=== PATIENT | male | born 1990 | race African-American/Black ===

== ENCOUNTER 2017-12-09 16:48 | Emergency (ER) | payer OTHER ==
[2017-12-09] MEDS ORDERED: OXYCODONE-ACETAMINOPHEN 5-325 MG TABLET PO ONE (17:20)
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
[2017-12-09 18:16] LABS: ABSOLUTE EOSINOPHILS # (AUTO) 0.1 10^3/uL (0.0-0.6); ABSOLUTE MONOCYTES (AUTO) 0.4 10^3/uL (0.1-1.4); ABSOLUTE NEUT (AUTO) 1.3 10^3/uL (1.7-8.2); BASOPHILS % (AUTO) 0.6 % (0-2); EOSINOPHILS % (AUTO) 1.9 % (0-6); HEMATOCRIT 47.8 % (37.9-51.0); HEMOGLOBIN 16.2 g/dL (13.5-17.0); LYMPHOCYTES % (AUTO) 34.7 % (13-45); MEAN CORPUSCULAR VOLUME 91 fl (80-97); PLATELET COUNT 172 10^3/uL (150-450); RED BLOOD COUNT 5.23 10^6/uL (4.35-5.55); SEGMENTED NEUTROPHILS % (AUTO) 47.8 % (42-78); TOTAL CELLS COUNTED % (AUTO) 100 %; WHITE BLOOD COUNT 2.7 10^3/uL (4.0-10.5)
[2017-12-09 18:33] LABS: ALANINE AMINOTRANSFERASE 33 U/L (21-72); ALBUMIN 4.8 g/dL (3.5-5.0); ALKALINE PHOSPHATASE 81 U/L (38-126); ANION GAP 9 (5-19); ASPARTATE AMINO TRANSFERASE 32 U/L (17-59); BILIRUBIN,DIRECT 0.3 mg/dL (0.0-0.4); BILIRUBIN,TOTAL 1.3 mg/dL (0.2-1.3); BLOOD UREA NITROGEN 11 mg/dL (7-20); CALCIUM 9.7 mg/dL (8.4-10.2); CARBON DIOXIDE 26 mmol/L (22-30); CHLORIDE 107 mmol/L (98-107); GLUCOSE 77 mg/dL (75-110); POTASSIUM 4.3 mmol/L (3.6-5.0); SODIUM 142.2 mmol/L (137-145); TOTAL PROTEIN 7.6 g/dL (6.3-8.2)
[2017-12-09 18:37] LABS: APPEARANCE,URINE CLEAR; BILIRUBIN,URINE NEGATIVE (NEGATIVE); COLOR,URINE YELLOW; GLUCOSE, URINE NEGATIVE (NEGATIVE); KETONES,URINE TRACE mg/dL (NEGATIVE); LEUKOCYTE ESTERASE,URINE NEGATIVE (NEGATIVE); NITRITE,URINE NEGATIVE (NEGATIVE); PROTEIN,URINE NEGATIVE (NEGATIVE); URINE SPECIFIC GRAVITY 1.025
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
[2017-12-09] MEDS ORDERED: DIPH/PERTUSS(ACELL)/TETANUS VAC/PF 0.5 ML SYR (>=10YO) IM ONE (19:19)
[2017-12-09 20:19] VITALS: BP 101/43
== END 2017-12-09 20:00 | disposition home or self-care (01) ==
LOC: ER 16:48
DX: S10.91XA Abrasion of unspecified part of neck, initial encounter (principal); S30.811A Abrasion of abdominal wall, initial encounter; D72.819 Decreased white blood cell count, unspecified; R10.12 Left upper quadrant pain; R07.81 Pleurodynia; V49.9XXA Car occupant (driver) (passenger) injured in unspecified traffic accident, initial encounter; F17.200 Nicotine dependence, unspecified, uncomplicated
CPT/HCPCS: 36415; 71260; 74177; 80053; 81001; 85025; 90715; 99284

== ENCOUNTER 2018-04-29 21:52 | Emergency (ER) | payer OTHER ==
--- NOTE | 2018-04-29 23:03 | ER Document Report ---
ED Medical Screen (RME) - General Chief Complaint: Cold Symptoms Stated Complaint: COLD SYMPTOMS Time Seen by Provider: 04/29/18 22:55 Mode of Arrival: Ambulatory Information source: Patient Notes: 27-year-old male history of lymphoma has been in remission for the past 2 years presents with 2 week duration of cough subjective fevers night sweats Patient notes that he is lost 4 pounds in the past week spoke with his oncologist who does not believe it is lymphoma related I have greeted and performed a rapid initial assessment of this patient. A comprehensive ED assessment and evaluation of the patient, analysis of test results and completion of the medical decision making process will be conducted by additional ED providers. PHYSICAL EXAMINATION: GENERAL: Well-appearing, well-nourished and in no acute distress. HEAD: Atraumatic, normocephalic. EYES: Pupils equal round extraocular movements intact, conjunctiva are normal. ENT: Nares patent NECK: Normal range of motion LUNGS: No respiratory distress Musculoskeletal: Normal range of motion NEUROLOGICAL: Normal speech, normal gait. PSYCH: Normal mood, normal affect. SKIN: Warm, Dry, normal turgor, no rashes or lesions noted. TRAVEL OUTSIDE OF THE [place] IN LAST 30 DAYS: No - Related Data Allergies/Adverse Reactions: No Known Allergies Allergy (Unverified 01/29/12 20:32) Past Medical History - Social History Chew tobacco use (# tins/day): No Frequency of alcohol use: None Drug Abuse: None Renal/ Medical History: Denies: Hx Peritoneal Dialysis Malignancy Medical History: Reports Hx Lymphoma Past Surgical History: Reports: Hx Vascular Surgery - Immunizations Hx Diphtheria, Pertussis, Tetanus Vaccination: No Physical Exam - Vital signs Vitals: Temp Pulse Resp BP Pulse Ox 98.3 F 81 18 102/62 96 04/29/18 22:05 04/29/18 22:05 04/29/18 22:05 04/29/18 22:05 04/29/18 22:05 Course - Vital Signs Vital signs: Temp Pulse Resp BP Pulse Ox 98.3 F 81 18 102/62 96 04/29/18 22:05 04/29/18 22:05 04/29/18 22:05 04/29/18 22:05 04/29/18 22:05
[2018-04-29 23:36] LABS: ABSOLUTE LYMPHOCYTES (AUTO) 1.2 10^3/uL (0.5-4.7); ABSOLUTE MONOCYTES (AUTO) 0.6 10^3/uL (0.1-1.4); ABSOLUTE NEUT (AUTO) 4.7 10^3/uL (1.7-8.2); BASOPHILS % (AUTO) 0.6 % (0-2); EOSINOPHILS % (AUTO) 0.5 % (0-6); HEMATOCRIT 45.4 % (37.9-51.0); HEMOGLOBIN 15.7 g/dL (13.5-17.0); LYMPHOCYTES % (AUTO) 18.6 % (13-45); MEAN CORPUSCULAR HEMOGLOBIN 31.3 pg (27.0-33.4); MEAN CORPUSCULAR HGB CONC 34.6 g/dL (32.0-36.0); MEAN CORPUSCULAR VOLUME 90 fl (80-97); MONOCYTES % (AUTO) 9.2 % (3-13); PLATELET COUNT 236 10^3/uL (150-450); RED BLOOD COUNT 5.03 10^6/uL (4.35-5.55); RED CELL DISTRIBUTION WIDTH 12.5 % (11.5-14.0); SEGMENTED NEUTROPHILS % (AUTO) 71.1 % (42-78); TOTAL CELLS COUNTED % (AUTO) 100 %; WHITE BLOOD COUNT 6.6 10^3/uL (4.0-10.5)
--- NOTE | 2018-04-29 23:36 | RADIOLOGY REPORT (SQ) ---
EXAM DESCRIPTION: Chest two views CLINICAL HISTORY: cough hx lymphoma COMPARISON: None FINDINGS: Cardiac silhouette is within normal limits. There is an infusion catheter with the tip ending at the level of the superior vena cava. There is no focal parenchymal or pleural disease. There is no acute osseous process visualized. IMPRESSION: No evidence of acute cardiopulmonary disease.
[2018-04-29 23:53] LABS: ALANINE AMINOTRANSFERASE 24 U/L (21-72); ALBUMIN 4.5 g/dL (3.5-5.0); ALKALINE PHOSPHATASE 72 U/L (38-126); ANION GAP 11 (5-19); ASPARTATE AMINO TRANSFERASE 32 U/L (17-59); BILIRUBIN,DIRECT 0.2 mg/dL (0.0-0.4); BILIRUBIN,TOTAL 0.8 mg/dL (0.2-1.3); BLOOD UREA NITROGEN 14 mg/dL (7-20); CALCIUM 9.8 mg/dL (8.4-10.2); CARBON DIOXIDE 30 mmol/L (22-30); CHLORIDE 103 mmol/L (98-107); GLUCOSE 97 mg/dL (75-110); POTASSIUM 4.2 mmol/L (3.6-5.0); SODIUM 144.4 mmol/L (137-145); TOTAL PROTEIN 7.3 g/dL (6.3-8.2)
[2018-04-29] MEDS ORDERED: IPRATROPIUM/ALBUTEROL 0.5-2.5 MG/3 ML AMPUL NEB ONE (23:58)
--- NOTE | 2018-04-30 00:08 | ER Document Report ---
ED General - General Mode of Arrival: Ambulatory Information source: Patient TRAVEL OUTSIDE OF THE [place] IN LAST 30 DAYS: No <JUANITA GARCIA - Last Filed: 04/30/18 01:31> <JAVI TAYLOR - Last Filed: 04/30/18 02:06> - General Chief Complaint: Cold Symptoms Stated Complaint: COLD SYMPTOMS Time Seen by Provider: 04/29/18 22:55 Notes: Patient is a 27 year old male with a history of lymphoma presents to the emergency department complaining of cold symptoms including fatigue, weakness, sweats and chills, cough, and congestion onset 2 weeks ago. Patient also report losing 4 lbs this last week. Patient denies difficulty breathing, fevers or sick contacts. Patient states he has been in remission for the last year and a half. He further states he spoke with his oncologist and he does not believe this is related to his Lymphoma. (JUANITA GARCIA) - Related Data Allergies/Adverse Reactions: No Known Allergies Allergy (Unverified 01/29/12 20:32) Past Medical History - General Information source: Patient - Social History Smoking Status: Current Every Day Smoker Chew tobacco use (# tins/day): No Frequency of alcohol use: None Drug Abuse: None Family History: Reviewed & Not Pertinent Patient has suicidal ideation: No Patient has homicidal ideation: No Renal/ Medical History: Denies: Hx Peritoneal Dialysis Malignancy Medical History: Reports Hx Lymphoma Past Surgical History: Reports: Hx Vascular Surgery - Immunizations Hx Diphtheria, Pertussis, Tetanus Vaccination: No <JUANITA GARCIA - Last Filed: 04/30/18 01:31> Review of Systems - Review of Systems Constitutional: See HPI, Chills, Diaphoresis, Weakness, Weight loss EENT: See HPI, Nose congestion Cardiovascular: No symptoms reported Respiratory: No symptoms reported Gastrointestinal: No symptoms reported Genitourinary: No symptoms reported Male Genitourinary: No symptoms reported Musculoskeletal: No symptoms reported Skin: No symptoms reported Hematologic/Lymphatic: No symptoms reported Neurological/Psychological: No symptoms reported -: Yes All other systems reviewed and negative <JUANITA GARCIA - Last Filed: 04/30/18 01:31> Physical Exam - General General appearance: Appears well, Alert In distress: None - HEENT Head: Normocephalic, Atraumatic Eyes: Normal Conjunctiva: Normal Extraocular movements intact: Yes Pupils: PERRL Neck: Normal - Respiratory Respiratory status: No respiratory distress Chest status: Nontender Breath sounds: Wheezing - mild expriatory wheezing Chest palpation: Normal - Cardiovascular Rhythm: Regular Heart sounds: Normal auscultation Murmur: No Friction rub: No Gallop: None auscultated - Abdominal Inspection: Normal Distension: No distension Bowel sounds: Normal Tenderness: Nontender Organomegaly: No organomegaly - Back Back: Normal - Extremities General upper extremity: Normal ROM General lower extremity: Normal ROM - Neurological Neuro grossly intact: Yes Cognition: Normal Orientation: AAOx4 Tao Coma Scale Eye Opening: Spontaneous [place] Coma Scale Verbal: Oriented [place] Coma Scale Motor: Obeys Commands [place] Coma Scale Total: 15 Speech: Normal - Psychological Associated symptoms: Normal affect, Normal mood - Skin Skin Temperature: Warm Skin Moisture: Dry Skin Color: Normal <JUANITA GARCIA - Last Filed: 04/30/18 01:31> - Vital signs Vitals: Temp Pulse Resp BP Pulse Ox 98.3 F 81 18 102/62 96 04/29/18 22:05 04/29/18 22:05 04/29/18 22:05 04/29/18 22:05 04/29/18 22:05 Course - Laboratory Result Diagrams: 04/29/18 23:20 04/29/18 23:20 <JUANITA GARCIA - Last Filed: 04/30/18 01:31> - Laboratory Result Diagrams: 04/29/18 23:20 04/29/18 23:20 <JAVI TAYLOR - Last Filed: 04/30/18 02:06> - Re-evaluation Re-evalutation: 04/30/18 00:36 Patient rechecked. Patient is no longer wheezing, states he feels better. ( JUANITA GARCIA) Patient is a 27-year-old male who presents with nasal congestion and cough. Patient has a history of lymphoma that is in remission. States that he has had fatigue recently as well. Blood work with no evidence for lymphoma or leukemia. Chemistry within normal limits. Patient had stopped smoking while he was being treated for cancer but had resumed afterwards. He is wheezing on exam and feels better after a nebulizer treatment. Patient will be discharged home with nebulizer prescription, prescription for DuoNeb, and prednisone. He is encouraged to stop smoking as it is likely the cause of his symptoms. Understands and agrees with plan. Follow-up with JAVAN Hinton for discharge. ( JAVI TAYLOR) - Vital Signs Vital signs: Temp Pulse Resp BP Pulse Ox 98.3 F 86 16 110/64 97 04/30/18 00:54 04/30/18 00:54 04/30/18 00:54 04/30/18 00:54 04/30/18 00:54 Discharge <JUANITA GARCIA - Last Filed: 04/30/18 01:31> <JAVI TAYLOR - Last Filed: 04/30/18 02:06> - Discharge Clinical Impression: Acute bronchospasm Condition: Stable Disposition: HOME, SELF-CARE Instructions: Bronchospasm ([facility]) Additional Instructions: Please follow-up with your doctor within the next week regarding your recent symptoms. Prescriptions: Fluticasone Propionate [24 Hour Allergy Relief] 15.8 ml NS DAILY #1 spray.susp Ipratropium/Albuterol Sulfate [Duoneb 3 ml Ampul] 3 ml NEB RTQ4HP PRN #20 vial.neb PRN Reason: Nebulizer [Nebulizer Machine] 1 each MC ASDIR PRN #1 kit PRN Reason: Prednisone 40 mg PO DAILY #6 tablet Forms: Smoking Cessation Education, Return to Work Scribe Attestation: 04/30/18 02:06 I personally performed the services described in the documentation, reviewed and edited the documentation which was dictated to the scribe in my presence, and it accurately records my words and actions. (JAVI TAYLOR) Scribe Documentation - Scribe Written by [email or web address]:: Cam More, 04/30/2018 00:10 acting as scribe for :: Estella <JUANITA GARCIA - Last Filed: 04/30/18 01:31>
[2018-04-30] MEDS ORDERED: PREDNISONE 20 MG TABLET PO ONE (00:42)
[2018-04-30 01:00] VITALS: BP 110/64
== END 2018-04-30 01:02 | disposition home or self-care (01) ==
LOC: ER 21:52
DX: J98.01 Acute bronchospasm (principal); R53.83 Other fatigue; R09.81 Nasal congestion; Z85.72 Personal history of non-Hodgkin lymphomas
CPT/HCPCS: 94640; 99283; 36415; 85025; 80053; 71046; J7512; J7620

== ENCOUNTER 2020-09-19 14:46 | Emergency (ER) | payer OTHER ==
--- NOTE | 2020-09-19 16:21 | RADIOLOGY REPORT (SQ) ---
EXAM DESCRIPTION: CHEST SINGLE VIEW IMAGES COMPLETED DATE/TIME: 09/19/2020 3:08 pm REASON FOR STUDY: cough x 1 week COMPARISON: 04/29/2018 EXAM PARAMETERS: NUMBER OF VIEWS: One view. TECHNIQUE: Single frontal radiographic view of the chest acquired. RADIATION DOSE: NA LIMITATIONS: None. FINDINGS: LUNGS AND PLEURA: No opacities, masses or pneumothorax. No pleural effusion. MEDIASTINUM AND HILAR STRUCTURES: No masses. Contour normal. HEART AND VASCULAR STRUCTURES: Heart normal in size. Normal vasculature. BONES: No acute findings. HARDWARE: Right MediPort catheter is unchanged with tip at the cavoatrial junction. OTHER: No other significant finding. IMPRESSION: NO ACUTE RADIOGRAPHIC FINDING IN THE CHEST. TECHNICAL DOCUMENTATION: JOB ID: [id number] 2010 [employer]- All Rights Reserved Reading location - IP/workstation name: [email or web address]
[2020-09-19 19:14] LABS: A TYPE INFLUENZA AG NEGATIVE (NEGATIVE); B INFLUENZA AG NEGATIVE (NEGATIVE)
--- NOTE | 2020-09-19 19:41 | ER Document Report ---
ED General - General Chief Complaint: Flu Symptoms Stated Complaint: COUGH Time Seen by Provider: 09/19/20 15:12 Primary Care Provider: GERARDO AVERY [Primary Care Provider] - Follow up as needed TRAVEL OUTSIDE OF THE [place] IN LAST 30 DAYS: No - HPI Notes: Patient is a 30-year-old male presents emergency department for evaluation of chills, cough. He denies any anosmia. No forrest fevers. No nausea, vomiting, diarrhea. His symptoms of been ongoing for the last 2 weeks. They just do not seem to be getting any better. He denies any pain at this time. He states he did have some soreness with his coughing in his chest, but that seems to have improved. - Related Data Allergies/Adverse Reactions: No Known Allergies Allergy (Verified 09/19/20 15:09) Home Medications: Zyrtec, Mucinex Past Medical History - General Information source: Patient - Social History Smoking Status: Current Every Day Smoker Family History: Reviewed & Not Pertinent Renal/ Medical History: Denies: Hx Peritoneal Dialysis Malignancy Medical History: Reports Hx Lymphoma Past Surgical History: Reports: Hx Vascular Surgery - Port placement, Other - Removal of ganglion cyst - Immunizations Hx Diphtheria, Pertussis, Tetanus Vaccination: No Review of Systems - Review of Systems Constitutional: See HPI EENT: No symptoms reported Cardiovascular: No symptoms reported Respiratory: See HPI Gastrointestinal: No symptoms reported Genitourinary: No symptoms reported Musculoskeletal: No symptoms reported Skin: No symptoms reported Neurological/Psychological: No symptoms reported Physical Exam - Vital signs Vitals: Temp Pulse Resp BP Pulse Ox 98.2 F 80 16 109/58 L 100 09/19/20 14:52 09/19/20 14:52 09/19/20 14:52 09/19/20 14:52 09/19/20 14:52 - Notes Notes: Vital signs reviewed, please refer to chart. Head is normocephalic, atraumatic. Pupils equal round, reactive to light. Neck is supple without meningismus. Heart is regular rate and rhythm. Lungs reveal scant expiratory wheezes bilaterally, otherwise clear. Abdomen is soft, nontender, normoactive bowel sounds throughout. Extremities without cyanosis, clubbing. Posterior calves are nontender. Peripheral pulses are equal. Skin is warm and dry. Patient is awake, alert, neurological exam is nonfocal. Course - Re-evaluation Re-evalutation: 12/08/20 19:40 Patient presents emergency department for evaluation. He had laboratory vesication is ordered through triage. His chest x-ray is unremarkable. He is oxygenating well. He does have scant wheezes. He is reminded to quit smoking. I will send with a prescription for an albuterol inhaler. At this point given his symptoms he is a PUI. Covid test is pending. He is to follow closely with his primary care provider. He is to return to the ED with worsening concerning symptoms of any sort. - Vital Signs Vital signs: Temp Pulse Resp BP Pulse Ox 97.7 F 61 15 93/62 L 100 09/19/20 19:52 09/19/20 19:52 09/19/20 19:52 09/19/20 19:52 09/19/20 19:52 - Laboratory Results Critical Laboratory Results Reviewed: No Critical Results - Radiology Results Critical Radiology Results Reviewed: No Critical Results Discharge - Discharge Clinical Impression: Viral respiratory illness, Person under investigation for COVID-19 Condition: Stable Disposition: HOME, SELF-CARE Instructions: COVID-19 Guidance for Persons Under Investigation, Upper Respiratory Illness ([facility]) Additional Instructions: Please try to quit smoking. Use albuterol inhaler every 4-6 hours as needed for shortness of breath. You are currently being tested for COVID-19. Please quarantine at home as discussed until test results, or 14 days after the onset of symptoms. Return to the emergency department with worsening concerning symptoms of any sort. Prescriptions: Albuterol Sulfate [Proair HFA Inhalation Aerosol 8.5 gm MDI] 2 puff IH Q4H PRN #1 mdi PRN Reason: Forms: Smoking Cessation Education, Return to Work Referrals: LOCALMD,NO [Primary Care Provider] - Follow up as needed
[2020-09-19 20:01] VITALS: BP 93/62
== END 2020-09-19 19:52 | disposition home or self-care (01) ==
LOC: ER 14:46
DX: B34.9 Viral infection, unspecified (principal); J98.8 Other specified respiratory disorders; R05 Cough; F17.200 Nicotine dependence, unspecified, uncomplicated; Z20.828 Contact with and (suspected) exposure to other viral communicable diseases
CPT/HCPCS: 99284; 87070; 87880; 87635; 87804; 71045; C9803